=== PATIENT | male | born 1980 | race Caucasian/White ===

== ENCOUNTER 2022-05-24 01:05 | Emergency (ER) | payer OTHER ==
[~2022-05-24] VITALS: Ht 170.1 cm; Wt 74.8 kg
[~2022-05-24 01:05] MED LIST: NKHM; SEPTRA 200 MG/100 ML PO
[2022-05-24] MEDS ORDERED: AMOXICILLIN500 M2 PO (03:32)
== END 2022-05-24 03:49 | disposition home or self-care (01) ==
LOC: ED 01:05
DX: K08.89 Other specified disorders of teeth and supporting structures (principal)